=== PATIENT | male | born 1955 | race Caucasian/White ===

== ENCOUNTER → 2017-09-09 | Outpatient (CLI) | payer OTHER ==
[~2017-09-09] MED LIST: IOPAMIDOL (ISOVUE-370) 150 ML BTL IV ONE
== END ==
LOC: FIMAGING 08:24
PROVIDERS: ATTEND Internal Medicine Interventional Cardiology
DX: I25.10 Atherosclerotic heart disease of native coronary artery without angina pectoris (principal)
CPT/HCPCS: Q9967